=== PATIENT | female | born 1980 | race Caucasian/White ===

== ENCOUNTER 2019-01-06 17:36 | Emergency (ER) | payer SELFPAY ==
[~2019-01-06] VITALS: Ht 152.4 cm; Wt 57.2 kg
[2019-01-06 17:49] VITALS: Ht 152.4 cm; Wt 57.2 kg
[2019-01-06] MEDS ORDERED: KETOROLAC 30 MG INJ IM STA (19:56)
[2019-01-06] MEDS ORDERED: LORAZEPAM 0.5 MG TAB PO ONE (20:00)
[2019-01-06] MEDS ORDERED: IBUP-1542 PO (20:22)
--- NOTE | 2019-01-06 20:23 | ERD ---
ER Documentation Chief Complaint Chief Complaint Pt reports insomnia and PANDEY x 3 days HPI 38-year-old female presenting to the ED for headache 8/10 nonradiating and difficulty sleeping x3 days. Patient denies history of headaches states that she was has trouble sleeping. Patient states that the lights provoke her h eadache and that she is try to take aspirin at home Tylenol has not helped. Patient denies any allergies to medication. Patient states she does have a history of high blood pressure and has been taking her medication. Patient appears to be very anxious and states that she has not been able to sleep well and is driving her crazy. Patient denies Ileana or homicidal ideation. Patient denies any allergies to medications ROS All systems reviewed and are negative except as per history of present illness. Medications Home Meds Active Scripts Ibuprofen* (Motrin*) 600 Mg Tab, 600 MG PO Q6, #30 TAB Prov:CARY ALVARENGA PA-C 01/06/19 Allergies Allergies: Coded Allergies: No Known Allergy (Unverified , 01/06/19) PMhx/Soc Medical and Surgical Hx: pt denies Medical Hx, pt denies Surgical Hx Hx Alcohol Use: No Hx Substance Use: No Hx Tobacco Use: No Smoking Status: Never smoker FmHx Family History: No diabetes, No coronary disease, No other Physical Exam Vitals Vital Signs Date Temp Pulse Resp B/P (MAP) Pulse Ox O2 O2 Flow FiO2 Time Delivery Rate 01/06/19 98.3 93 16 168/84 100 17:49 (112) Physical Exam Const: No acute distress Head: Atraumatic Eyes: Normal Conjunctiva ENT: Normal External Ears, Nose and Mouth. Neck: Full range of motion. No meningismus. Resp: Clear to auscultation bilaterally Cardio: Regular rate and rhythm, no murmurs Abd: Soft, non tender, non distended. Normal bowel sounds Skin: No petechiae or rashes Back: No midline or flank tenderness Ext: No cyanosis, or edema Neur: Awake and alert Psych: Normal Mood and Affect Results 24 hrs Laboratory Tests Test 01/06/19 19:51 POC Beta HCG, Qualitative NEGATIVE Current Medications Medications Dose Sig/Joy Start Time Status Last (Trade) Ordered Route PRN Stop Time Admin Dose Reason Admin Ketorolac 30 mg ONCE STAT 01/06/19 DC 01/06/19 Tromethamine IM 19:56 20:07 (Toradol) 01/06/19 19:57 Lorazepam 0.5 mg ONCE ONCE 01/06/19 DC 01/06/19 (Ativan) PO 20:00 20:07 01/06/19 20:01 Procedures/MDM ED course: POC urine Toradol Ativan The patient was stable throughout the ED course. The patient and/or family info rmed of laboratory and diagnostic imaging results throughout the ED course. Medications given in ER: Toradol Ativan Patient tolerated medication well with no adverse reactions. Patient reported improvement in pain. Medical decision makin-year-old female presenting to the emergency department for headache and insomnia. Patient's physical exam was unremarkable neuro exam was unremarkable. Patient describes headache as a throbbing sensation that worsens in light. Patient states that she has history of insomnia and has not been sleeping well. Patient has no neck stiffness she has full range of motion in her neck she is af ebrile. POC urine was negative. Patient was given IM Toradol half milligram of Ativan. On reevaluation patient appears to be doing much better she states the headache has improved and she is no longer feeling anxious. Patient was advised that she cannot drive or operate a vehicle tonight. Patient states that she has a ride home and she is not driving. at this time I have low suspicion for CVA, TIA, intracranial hemorrhage, meningitis, encephalitis, CO poisoning, temporal arteritis, benign intracranial hypertension, intracranial mass, glaucoma, preeclampsia, sinusitis, tension headache, migraine headache, cluster headache. Patient is being discharged with prescription for Motrin. Patient was advised if symptoms worsen to return to ED immediately. Otherwise patient was advised to follow-up with a primary care provider 1 to 2 days regarding this visit. All questions were answered upon discharge and patient is in agreement to the treatment plan Prescription for home: Motrin Discharge: At this time, patient is stable for discharge and outpatient management. I have instructed the patient to follow-up with his\her primary care physician in 1 to 2 days. I have discussed with the patient the possibility of needing to see a specialist for further work-up and imaging studies if symptoms persist. I have instructed the patient to promptly return to the ER for any new or worsening symptoms including increased pain, fever, nausea, vomiting, weakness or LOC. The patient and\or family expressed understanding of and agreement with this plan. All questions were answered. Home care instructions were provided. Disclaimer: Inadvertent spelling and grammatical errors are likely due to EHR\dictation software use and do not reflect on the overall quality of patient care. Also, please note that the electronic time recorded on the note does not necessarily reflect the actual time of the patient encounter. Departure Diagnosis: Primary Impression: Headache Headache type: unspecified Headache chronicity pattern: unspecified beth acuña Intractability: intractable Qualified Codes: R51 - Headache Additional Impression: Anxiety Condition: Stable Patient Instructions: Your Body's Response to Anxiety, Self-Care for Headaches Referrals: [facility] YOU HAVE RECEIVED A MEDICAL SCREENING EXAM AND THE RESULTS INDICATE THAT YOU DO NOT HAVE A CONDITION THAT REQUIRES URGENT TREATMENT IN THE EMERGENCY DEPARTMENT. FURTHER EVALUATION AND TREATMENT OF YOUR CONDITION CAN WAIT UNTIL YOU ARE SEEN IN YOUR DOCTORS OFFICE WITHIN THE NEXT 1-2 DAYS. IT IS YOUR RESPONSIBILITY TO MAKE AN APPOINTMENT FOR FOLOW-UP CARE. IF YOU HAVE A PRIMARY DOCTOR --you should call your primary doctor and schedule an appointment IF YOU DO NOT HAVE A PRIMARY DOCTOR YOU CAN CALL OUR PHYSICIAN REFERRAL HOTLINE AT IF YOU CAN NOT AFFORD TO SEE A PHYSICIAN YOU CAN CHOSE FROM THE FOLLOWING [facility] [address] [facility]. [facility] [address] [facility]. [facility] [address] [facility] [facility] [address] [facility] [facility] [address] [facility]. [facility]. [address] [facility]. [facility] YOU HAVE RECEIVED A MEDICAL SCREENING EXAM AND THE RESULTS INDICATE THAT YOU DO NOT HAVE A CONDITION THAT REQUIRES URGENT TREATMENT IN THE EMERGENCY DEPARTMENT. FURTHER EVALUATION AND TREATMENT OF YOUR CONDITION CAN WAIT UNTIL YOU ARE SEEN IN YOUR DOCTORS OFFICE WITHIN THE NEXT 1-2 DAYS. IT IS YOUR RESPONSIBILITY TO MAKE AN APPOINTMENT FOR FOLOW-UP CARE. IF YOU HAVE A PRIMARY DOCTOR --you should call your primary doctor and schedule and appointment IF YOU DO NOT HAVE A PRIMARY DOCTOR YOU CAN CALL OUR PHYSICIAN REFERRAL HOTLINE AT . IF YOU CAN NOT AFFORD TO SEE A PHYSICIAN YOU CAN CHOSE FROM THE FOLLOWING [facility] INSTITUTIONS: [facility] [address] [place] [address] [facility] [address] [place] [address] [facility] + [facility] [address] [place] [address] Additional Instructions: Call your primary care doctor TOMORROW for an appointment during the next 1-2 days.See the doctor sooner or return here if your condition worsens before your appointment time. CARY ALVARENGA PA-C Jan 06, 2019 20:23
[2019-01-06 21:26] VITALS: BP 126/61; PULSE 52; RESP 16
== END 2019-01-06 21:28 | disposition home or self-care (01) ==
LOC: FTE 17:36
DX: R51 Headache (principal); F41.9 Anxiety disorder, unspecified
CPT/HCPCS: 81025; 96372; 99284; J1885